=== PATIENT | female | born 1985 | race Hispanic/Latino ===

== ENCOUNTER 2019-08-06 11:57 | Emergency (ER) | payer OTHER ==
[2019-08-06 12:59] LABS: Absolute Lymphocytes (CBC) 2.1 K/uL (0.7-4.9); Basophils % 0.9 % (0-1.3); Hematocrit 40.2 % (36.0-45.0); Lymphocytes % 25.2 % (15.3-44.8); MPV 9.2 fL (7.6-11.3)
[2019-08-06 13:00] LABS: Protime INR 1.07
--- NOTE | 2019-08-06 13:04 | RAD REPORT ---
EXAM DESCRIPTION: Marti Single View08/06/2019 12:57 pm CLINICAL HISTORY: Chest pain COMPARISON: none FINDINGS: The lungs appear clear of acute infiltrate. The heart is normal size IMPRESSION: No acute abnormalities displayed
[2019-08-06 13:28] LABS: ALT/SGPT 23 U/L (12-78); AST/SGOT 13 U/L (15-37); Albumin 4.1 g/dL (3.4-5.0); Alkaline Phosphatase 62 U/L (45-117); BUN Blood Urea Nitrogen 10 mg/dL (7-18); Bicarbonate 26 mmol/L (21-32); Bilirubin Direct 0.1 mg/dL (0-0.2); Bilirubin Total 0.6 mg/dL (0.2-1.0); Glucose Level 102 mg/dL (74-106); Magnesium 2.2 mg/dL (1.8-2.4); NT PRO-BNP 30 pg/mL (<125); Potassium 3.6 mmol/L (3.5-5.1); Protein, Total 8.2 g/dL (6.4-8.2); Sodium Level 139 mmol/L (136-145); Troponin (Emerg Dept Use Only) < 0.02 ng/mL (0.0-0.045)
--- NOTE | 2019-08-06 13:39 | EDPHYS ---
Physician Documentation [facility] Name: Yenifer Salmeron Age: 34 yrs Sex: Female : 1985 Arrival Date: 08/06/2019 Time: 11:59 Bed 13 Private MD: ED Physician Henry Alvarenga HPI: 08/05 13:13 This 34 yrs old Female presents to ER via Ambulatory with complaints of ma2 Shoulder Pain, Shortness Of Breath. 13:13 The patient or guardian complains of pain. left shoulder. Onset: The symptoms/episode ma2 began/occurred gradually, 3 day(s) ago. Associated signs and symptoms: Pertinent negatives: diaphoresis. Severity of symptoms: At their worst the symptoms were mild, in the emergency department the symptoms are unchanged. The patient has not experienced similar symptoms in the past. 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 - Social history:: Smoking status: Patient denies any tobacco usage or history of. Patient/guardian denies using alcohol, street drugs, The patient lives with family. - Family history:: not pertinent. ROS: 13:13 Constitutional: Negative for fever, chills, and weight loss. ma2 13:13 All other systems are negative. Exam: 13:13 Constitutional: This is a well developed, well nourished patient who is awake, alert, ma2 and in no acute distress. Chest/axilla: Normal chest wall appearance and motion. Nontender with no deformity. No lesions are appreciated. Cardiovascular: Regular rate and rhythm with a normal S1 and S2. No gallops, murmurs, or rubs. Normal PMI, no JVD. No pulse deficits. Respiratory: Lungs have equal breath sounds bilaterally, clear to auscultation and percussion. No rales, rhonchi or wheezes noted. No increased work of breathing, no retractions or nasal flaring. Abdomen/GI: Soft, non-tender, with normal bowel sounds. No distension or tympany. No guarding or rebound. No evidence of tenderness throughout. Skin: Warm, dry with normal turgor. Normal color with no rashes, no lesions, and no evidence of cellulitis. MS/ Extremity: ttp over left scapular area, Pulses equal, no cyanosis. Neurovascular intact. Full, normal range of motion. Neuro: Awake and alert, GCS 15, oriented to person, place, time, and situation. Cranial nerves II-XII grossly intact. Motor strength 5/5 in all extremities. Sensory grossly intact. Cerebellar exam normal. Normal gait. Vital Signs: 12:03 BP 141 / 89; Pulse 106; Resp 16; Temp 98.2; Pulse Ox 100% ; Weight 74.84 kg; Height 5 hb ft. 4 in. (162.56 cm); Pain 1/10; 13:22 BP 122 / 83; Pulse 94; Resp 17; Pulse Ox 100% on R/A; tw2 12:03 Body Mass Index 28.32 (74.84 kg, 162.56 cm) hb MDM: 12:13 Patient medically screened. ma2 13:13 Differential diagnosis: humeral head fracture, glenoid fracture, DJD, tendonitis. Data ma2 reviewed: vital signs, nurses notes. Counseling: I had a detailed discussion with the patient and/or guardian regarding: the historical points, exam findings, and any diagnostic results supporting the discharge/admit diagnosis, the presence of at least one elevated blood pressure reading (>120/80) during this emergency department visit, the need for outpatient follow up. Response to treatment: the patient's symptoms have markedly improved after treatment. 08/05 12:30 Order name: Basic Metabolic Panel; Complete Time: : [facility]08/05 12:30 Order name: CBC with Diff; Complete Time: : [facility] 08/05 12:30 Order name: LFT's; Complete Time: : [facility]08/05 12:30 Order name: Magnesium; Complete Time: : [facility]08/05 12:30 Order name: NT PRO-BNP; Complete Time: : [facility]08/05 12:30 Order name: PT-INR; Complete Time: : [facility]08/05 12:30 Order name: Troponin (emerg Dept Use Only); Complete Time: : [facility] 08/05 12:30 Order name: XRAY Chest (1 view); Complete Time: 13:32 [facility] 08/05 12:30 Order name: EKG; Complete Time: 12:31 [facility] 08/05 12:30 Order name: Cardiac monitoring; Complete Time: 13:06 [facility] 08/05 12:30 Order name: EKG - Nurse/Tech; Complete Time: 13:07 [facility] 08/05 12:30 Order name: IV Saline Lock; Complete Time: 13:07 [facility] 08/05 13:23 Order name: Urine Dipstick--Ancillary (enter results) 08/05 13:23 Order name: Urine --Ancillary (enter results) 08/05 12:30 Order name: Labs collected and sent; Complete Time: 13:07 [facility] 08/05 12:30 Order name: O2 Per Protocol; Complete Time: 13:07 [facility] 08/05 12:30 Order name: O2 Sat Monitoring; Complete Time: 13:07 ma Administered Medications: No medications were administered Disposition: 08/06/19 13:38 Discharged to Home. Impression: Muscle spasm of back. - Condition is Stable. - Discharge Instructions: Muscle Cramps and Spasms. - Prescriptions for Cyclobenzaprine 10 mg Oral Tablet - take 1 tablet by ORAL route every 8 hours As needed; 30 tablet. - Work release form, Medication Reconciliation Form, Thank You Letter, Antibiotic Education, Prescription Opioid Use form. - Follow up: Private Physician; When: Tomorrow; Reason: If symptoms return, Continuance of care. Signatures: Dispatcher [employer] Johanny Ames RN RN ss Baxter, Heather, RN RN Henry Alvarenga MD MD ma2 Corrections: (The following items were deleted from the chart) 14:09 13:38 08/06/2019 13:38 Discharged to Home. Impression: Muscle spasm of back. Condition ss is Stable. Prescriptions for Cyclobenzaprine 10 mg Oral Tablet - take 1 tablet by ORAL route every 8 hours As needed; 30 tablet. and Forms are Medication Reconciliation Form, Thank You Letter, Antibiotic Education, Prescription Opioid Use. Follow up: Private Physician; When: Tomorrow; Reason: If symptoms return, Continuance of care. ma2
--- NOTE | 2019-08-06 13:39 | ER ---
Nurse's Notes [facility] Name: Yenifer Salmeron Age: 34 yrs Sex: Female : 1985 Arrival Date: 08/06/2019 Time: 11:59 Bed 13 Private MD: Diagnosis: Muscle spasm of back Presentation: 08/05 12:03 Chief complaint: Pain in mid back 5 days ago, moved to left shoulder and left upper hb chest 2 days ago. Also reports SOB. Denies cough/fever. Coronavirus screen: Patient denies fever greater than 100.4F, cough, shortness of breath, or difficulty breathing. Proceed with normal triage process. Ebola Screen: No symptoms or risks identified at this time. 12:03 Method Of Arrival: Ambulatory hb 12:03 Initial Sepsis Screen: Does the patient meet any 2 criteria? HR > 90 bpm. No. Patient's hb initial sepsis screen is negative. Does the patient have a suspected source of infection? No. Patient's initial sepsis screen is negative. Risk Assessment: Do you want to hurt yourself or someone else? Patient reports no desire to harm self or others. 12:03 Acuity: CLARISSA 3 hb 12:15 Onset of symptoms was August 06, 2019. 14:16 Onset of symptoms is unknown. Triage Assessment: 12:15 General: Appears in no apparent distress. Behavior is calm, cooperative, appropriate wh for age. Respiratory: Reports pain with movement Onset: The symptoms/episode began/occurred at an unknown time. the patient reports symptoms have resolved. Musculoskeletal: Circulation, motion, and sensation intact. 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 - Social history:: Smoking status: Patient denies any tobacco usage or history of. Patient/guardian denies using alcohol, street drugs, The patient lives with family. - Family history:: not pertinent. Screenin:15 Abuse screen: Denies threats or abuse. Denies injuries from another. Nutritional wh screening: No deficits noted. Tuberculosis screening: No symptoms or risk factors identified. Fall Risk None identified. Assessment: 12:15 General: Appears in no apparent distress. Behavior is calm, cooperative, appropriate wh for age. Pain: Complains of pain in mid back Pain radiates to left shoulder and chest Pain currently is 3 out of 10 on a pain scale. Quality of pain is described as aching, Pain began 2-3 days ago. Neuro: Level of Consciousness is awake, alert, obeys commands, Oriented to person, place, time, situation, Appropriate for age. Cardiovascular: Heart tones S1 S2 Rhythm is regular. Respiratory: Airway is patent Respiratory effort is even, unlabored, Respiratory pattern is regular, symmetrical, Breath sounds are clear bilaterally. GI: Abdomen is flat, non-distended. : No signs and/or symptoms were reported regarding the genitourinary system. EENT: No signs and/or symptoms were reported regarding the EENT system. Derm: Skin is intact, is healthy with good turgor, Skin is pink, warm \T\ dry. normal. Musculoskeletal: Circulation, motion, and sensation intact. 14:09 Reassessment: Patient appears in no apparent distress at this time. Patient and/or ss family updated on plan of care and expected duration. Pain level reassessed. Patient is alert, oriented x 3, equal unlabored respirations, skin warm/dry/pink. Vital Signs: 12:03 BP 141 / 89; Pulse 106; Resp 16; Temp 98.2; Pulse Ox 100% ; Weight 74.84 kg; Height 5 hb ft. 4 in. (162.56 cm); Pain 1/10; 13:22 BP 122 / 83; Pulse 94; Resp 17; Pulse Ox 100% on R/A; tw2 12:03 Body Mass Index 28.32 (74.84 kg, 162.56 cm) ED Course: 11:59 Patient arrived in ED. mr 12:05 Triage completed. hb 12:06 Arm band placed on. hb 12:10 Alistair Heck is Primary Nurse. 12:13 Henry Alvarenga MD is Attending Physician. ma2 12:15 Patient has correct armband on for positive identification. Bed in low position. Call light in reach. Side rails up X 1. 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 Pulse ox on. NIBP on. 12:50 Initial lab(s) drawn, by me, sent to lab. Urine collected: clean catch specimen, EKG kj1 done, by ED staff, reviewed by Henry Alvarenga MD. Inserted saline lock: 22 gauge in right antecubital area, using aseptic technique. Blood collected. 12:57 XRAY Chest (1 view) In Process Unspecified. EDMS 14:09 No provider procedures requiring assistance completed. IV discontinued, intact, ss bleeding controlled, No redness/swelling at site. Pressure dressing applied. Administered Medications: No medications were administered Outcome: 13:38 Discharge ordered by . cassidy 14:09 Discharged to home ambulatory. ss 14:09 Condition: good 14:09 Discharge instructions given to patient, Instructed on discharge instructions, follow up and referral plans. medication usage, Demonstrated understanding of instructions, follow-up care, medications, Prescriptions given X 1. 14:09 Patient left the ED. ss Signatures: Dispatcher [employer] EDAK MartellMargie Shelby, RN RN Perla Austin, Cynthia Ervin RN, RN RN 2 Alistair Heck Mohammad, MD MD ma2 Maricruz Ellington kj1
[2019-08-06 14:16] VITALS: TEMP 98.2; O2SAT 100
[2019-08-06 14:17] VITALS: BP 122/83
[2019-08-06 20:42] LABS: Urine Blood TRACE (NEG); Urine Glucose NEGATIVE (NEG); Urine Protein NEGATIVE (NEG); Urine Specific Gravity 1.015 (1.005-1.030)
--- NOTE | 2019-08-07 10:58 | EKG ---
Test Date: 2019-08-06 Test Time: 12:56:05 Male Infertility Specialist: JOS MEASUREMENT RESULTS: Intervals: Rate: 96 WV: 132 QRSD: 82 QT: 350 QTc: 442 [place]: P: 53 WV: 132 QRS: 94 T: 60 INTERPRETIVE STATEMENTS: Normal sinus rhythm Rightward axis Borderline ECG No previous ECG available for comparison Electronically Signed On 08-07-19 10:56:20 CDT by Slava Saba
== END 2019-08-06 14:09 | disposition home or self-care (01) ==
LOC: ER 11:57
DX: M62.830 Muscle spasm of back (principal); I10 Essential (primary) hypertension
CPT/HCPCS: 36415; 71045; 80048; 80076; 81003; 81025; 83735; 83880; 84484; 85025; 85610; 93005; 99284